=== PATIENT | female | born 1955 | race Caucasian/White ===

== ENCOUNTER → 2017-03-15 | Outpatient (CLI) | payer MEDICARE, MEDICAID | END | disposition disaster alternative care site (69) | LOC: GBCOE 09:00 | DX: Z12.31 Encounter for screening mammogram for malignant neoplasm of breast (principal) | CPT/HCPCS: G0202 ==

== ENCOUNTER 2017-05-31 14:44 | Emergency (ER) | payer MEDICARE, MEDICAID ==
--- NOTE | ~2017-05-31 | ER ---
PATIENT'S NAME: CAROLINE PARSONS [facility] AGE: 62 Y [address] ROOM: [place] [address] LOCATION: ED ADMIT DATE: 05/31/2017 ER/Outpatient Report DISCHARGE DATE: 05/31/2017 FAMILY PHYSICIAN: Shelli Jones ATTENDING PHYSICIAN: Sang Montes De Oca CHIEF COMPLAINT: Chest pain, difficulty breathing. HISTORY OF PRESENT ILLNESS: I saw this patient in conjunction with Dr. Faye Trevizo, resident physician. Ms. Parsons notes that she has had chest pain since she woke up this morning. She thought it was her asthma, but it did not get better with her usual treatments and thus she called clinic and was referred here. I saw this patient in conjunction with Dr. Faye Trevizo, resident physician. Please see her dictation for complete details of evaluation. Briefly, the patient is a known asthmatic. She has had persistent chest pain, pressure, and rippling sensation in her back all morning. It has been persistent since she woke up until arrival here this afternoon. She describes a pressure-like sensation in the front. It does not radiate anywhere, otherwise. The patient was considered for ACS and PE as primary presentation. She had no difficulties with breathing and oxygenation here. Her pulmonary exam was normal. No obvious source of DVT or PE. LABORATORY DATA AND IMAGING STUDIES: Labs are notable for some hematuria of unclear etiology. No evidence of infection. CBC is unremarkable. CMS was reviewed and found to be notable for hypoglycemia and otherwise unremarkable. The patient does not have any elevation of any cardiac markers, and D-dimer is not elevated. INR is less than 1. CBC is unremarkable. EKG does have some artifact, but no ischemic changes. No comparison is available. EMERGENCY DEPARTMENT COURSE: Overall this patient was given aspirin. She had complete resolution of her symptoms upon arrival in the ER. Based on symptom duration, single troponin and nonischemic EKG exclude ACS. D-dimer is not elevated. Chest x-ray was unremarkable per my review. I believe the patient is safe for discharge. She describes no further symptoms and endorses complete resolution of all symptoms at this time. She does have her usual chronic low back pain and denies any other symptoms from that standpoint. All questions were answered and the patient was discharged to home with instructions to follow up with PCP early next week or return immediately if worse. PATIENT'S NAME: CAROLINE PARSONS [facility] AGE: 62 Y [address] ROOM: [place] [address] LOCATION: [facility] ADMIT DATE: 05/31/2017 ER/Outpatient Report DISCHARGE DATE: 05/31/2017 FAMILY PHYSICIAN: Shelli Jones ATTENDING PHYSICIAN: Sang Montes De Oca MD CESAR GARAY/june /[id number] d: 05/31/172124 t: 06/11/17 0613, OUTPATIENT REPORT
--- NOTE | ~2017-05-31 | ER ---
PATIENT'S NAME: CAROLINE PARSONS [facility] AGE: 62 Y [address] ROOM: [place] [address] LOCATION: ED ADMIT DATE: 05/31/2017 ER/Outpatient Report DISCHARGE DATE: 05/31/2017 FAMILY PHYSICIAN: Shelli Jones ATTENDING PHYSICIAN: Sang Oh TIME OF ARRIVAL: 1444 hours. TIME SEEN: 1450 hours. CHIEF COMPLAINT: Chest pain. HISTORY OF PRESENT ILLNESS: This is a 62-year-old female who presented to the ED with chest pain. She reports the chest pain started about 7 a.m. She reports that the pain is in her mid chest, and feels like a pressure. It does radiate across to her shoulders and the back. She does not have ripping or tearing sensation. She said this can feel like her asthma at times or her anxiety. She took an Ativan, though, and does not feel that this is the cause of her pain. She currently denies lightheadedness, fever, chills, nausea, vomiting, abdominal pain, shortness of breath, urinary or bowel complaints. She has no numbness or weakness to her lower extremities. PAST MEDICAL HISTORY: Significant for bipolar disorder, asthma, and type 2 diabetes but she is not on insulin. She also has a history of left ventricular hypertrophy. SOCIAL HISTORY: She denies smoking, alcohol, or illicit drug use. She does live here in [place]. MEDICATIONS: 1. Invega 117 mg monthly. 2. Advair twice daily. 3. Ventolin as needed. 4. Metformin 1000 mg b.i.d. 5. Ativan 0.5 mg 4 times daily. 6. Multivitamin. 7. Probiotic. ALLERGIES: MORPHINE THAT CAUSES ITCHING AND RASH. PATIENT'S NAME: CAROLINE PARSONS [facility] AGE: 62 Y [address] ROOM: [place] [address] LOCATION: ED ADMIT DATE: 05/31/2017 ER/Outpatient Report DISCHARGE DATE: 05/31/2017 FAMILY PHYSICIAN: Shelli Jones ATTENDING PHYSICIAN: Sang Oh REVIEW OF SYSTEMS: All review of systems were reviewed and are negative except for that listed in the HPI. PHYSICAL EXAMINATION: VITAL SIGNS: Blood pressure 144/65, pulse 89, respirations 18, temperature 98.9, oxygen saturation 93% on room air. GENERAL: She is a 62-year-old female appearing her stated age. No apparent distress. HEENT: Pupils are equal, round, and reactive to light. Moist mucous membranes. CV: Regular rate and rhythm. No murmurs auscultated. LUNGS: Clear to auscultation bilaterally. ABDOMEN: Positive bowel sounds. Nontender, nondistended. EXTREMITIES: No edema noted. 2+ DP and PT pulses bilaterally. NEURO: Normal gait. A&Ox3. SKIN: Warm and dry. LABORATORY DATA AND X-RAYS: CBC remarkable for white count of 7.8, hemoglobin 14.6, platelets of 178. UA showing 25 leukocytes, negative for nitrites; on micro, 2 to 5 white blood cells, 5 to 10 red blood cells, few bacteria, and 2 to 5 epithelials. Her CMS showed a sodium of 136, potassium 4.2, chloride 102, bicarb 26, glucose 157, calcium 9.3, creatinine 1.1. AST, ALT, as well as alk phos were normal. Troponin was negative. Magnesium 1.9. CPK and CK-MB were also normal. D-dimer was negative at 0.25. INR of 0.93. Chest x-ray was unremarkable for acute events. EKG showed left axis deviation as well as left ventricular hypertrophy with repolarization abnormality. IMPRESSION: Chest pain of unknown etiology. EMERGENCY DEPARTMENT COURSE: The patient was given 324 mg of aspirin upon arrival to the ER. She did not require pain meds for the duration of her stay. Acute cardiac issues were ruled out as well as PE. Discussed with the patient that this could be related to her anxiety, but that it was felt that she would be safe for discharge. She acknowledged understanding and agreed that she was safe to discharge. Followup recommended with her primary care provider to discuss this further. The patient was also seen by Dr. Oh who agrees with the assessment and plan. MARYJANE LAKHANI MD FOR SANG OH MD PATIENT'S NAME: CAROLINE PARSONS [facility] AGE: 62 Y [address] ROOM: [place] [address] LOCATION: [facility] ADMIT DATE: 05/31/2017 ER/Outpatient Report DISCHARGE DATE: 05/31/2017 FAMILY PHYSICIAN: Shelli Jones ATTENDING PHYSICIAN: Sang Oh/june /[id number] I have seen and evaluated this patient personally. I have reviewed the plan of care as noted above and have dictated a short note as well. Sang Oh MD d: 05/31/17 2142 t: 06/11/17 0623, OUTPATIENT REPORT
[2017-05-31 15:19] LABS: BASOPHIL % 0.3 %; EOSINOPHIL # 0.1 K/uL (0.0-0.5); EOSINOPHIL % 1.7 %; HEMOGLOBIN 14.6 g/dL (10.0-15.0); IMMATURE GRANULOCYTE % 0.5 %; LYMPHOCYTE # 2.6 K/uL (0.8-4.0); LYMPHOCYTE % 33.3 %; MCH 31.3 pg (27.0-34.0); MCHC 34.8 gm/dL (32.0-36.5); MCV 90.1 fl (83.0-98.0); MONOCYTE # 0.7 K/uL (0.0-1.0); MONOCYTE % 8.8 %; MPV 9.1 fl (9.4-12.4); NEUTROPHIL # (ANC) 4.4 K/uL (1.8-7.8); NEUTROPHIL % 55.4 %; NRBC % 0 /100WBC (0-0.00); PLATELET COUNT 178 K/uL (150-450); RBC 4.66 M/uL (3.50-5.50); RDW-CV 12.8 % (11.9-14.6); WBC 7.8 K/uL (4.0-11.0)
[2017-05-31 15:27] LABS: INR - (THERAPEUTIC) 0.93 (0.92-1.07); PROTIME 9.8 SECONDS (9.8-11.4); PTT 28 SECONDS (25-32)
[2017-05-31 15:41] LABS: ALBUMIN 3.8 gm/dL (3.5-5.0); ALK PHOS 112 IU/L (33-138); ALT 29 IU/L (12-78); ANION GAP 12.2 (10.0-19.0); AST 24 IU/L (10-40); BLOOD UREA NITROGEN 13 mg/dL (6-24); CALCIUM 9.3 mg/dL (8.5-10.5); CHLORIDE 102 mMol/L (96-110); CO2 26 mMol/L (22-32); CPK 79 IU/L (21-215); CREATININE 1.1 mg/dL (0.5-1.1); MAGNESIUM 1.9 mg/dL (1.8-2.6); POTASSIUM 4.2 mMol/L (3.7-5.1); SODIUM 136 mMol/L (135-145); TOTAL BILIRUBIN 0.4 mg/dL (0.0-1.5); TOTAL PROTEIN 7.3 g/dL (6.0-8.4)
[2017-05-31 15:57] LABS: BILIRUBIN URINE NEGATIVE (NEGATIVE); BLOOD URINE 150 /UL (NEGATIVE); COLOR URINE YELLOW (YELLOW); GLUCOSE URINE NEGATIVE (NEGATIVE); KETONE URINE NEGATIVE (NEGATIVE); LEUKOCYTES URINE 25 /UL (NEGATIVE); NITRITE URINE NEGATIVE (NEGATIVE); PROTEIN URINE NEGATIVE (NEGATIVE); SPEC GRAVITY URINE 1.005 (1.003-1.035); TURBIDITY URINE CLEAR (CLEAR); UROBILINOGEN URINE NORMAL (NORMAL)
[2017-05-31 16:10] LABS: BACTERIA URINE FEW (NEGATIVE)
== END 2017-05-31 16:26 | disposition disaster alternative care site (69) ==
LOC: GMED 14:44
PROVIDERS: Emergency Medicine
DX: R07.89 Other chest pain (principal); F31.9 Bipolar disorder, unspecified; J45.909 Unspecified asthma, uncomplicated; E11.9 Type 2 diabetes mellitus without complications; Z79.84 Long term (current) use of oral hypoglycemic drugs; Z79.899 Other long term (current) drug therapy; Z88.5 Allergy status to narcotic agent